=== PATIENT | female | born 1975 | race Caucasian/White ===

== ENCOUNTER 2019-10-17 09:53 | Emergency (ER) | payer BC, SELFPAY ==
[2019-10-17 10:06] VITALS: BP 122/84; PULSE 106; RESP 16; TEMP 36.4; O2SAT 100
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
== END 2019-10-17 10:55 | disposition home or self-care (01) ==
PROVIDERS: Emergency Provider Nurse Practitioner; PCP Family Medicine
DX: R60.0 Localized edema (principal); F41.9 Anxiety disorder, unspecified; F32.9 Major depressive disorder, single episode, unspecified
CPT/HCPCS: 99213; G0463

== ENCOUNTER 2020-06-01 06:51 | Outpatient (NON) | payer BC, SELFPAY ==
[2020-06-01 18:18] LABS: SARS-CoV-2 RNA PCR Negative
== END 2020-06-01 06:52 ==
LOC: ANHCOVIDDT 06:52
PROVIDERS: PCP Family Medicine; Visit Provider Family Medicine
DX: Z20.828 Contact with and (suspected) exposure to other viral communicable diseases (principal)
CPT/HCPCS: 87635; C9803; U0003

== ENCOUNTER 2020-06-21 07:46 | Outpatient (CLI) | payer BC, SELFPAY ==
--- NOTE | ~2020-06-21 | MM_ITS ---
EXAMINATION: MM screening [facility] BI w john HISTORY: Screening mammogram TECHNIQUE: Craniocaudal and mediolateral oblique 3-D tomosynthesis images were obtained and synthetic 2-D images were generated. CAD analysis was submitted and interpreted. COMPARISON: 01/06/2019, 12/23/2017 BREAST PARENCHYMAL COMPOSITION: There are scattered areas of fibroglandular density. FINDINGS: RIGHT BREAST: There is no evidence of suspicious mass, calcification, or architectural distortion to suggest malignancy. There has been no significant interval change. LEFT BREAST: There is a possible mass in the posterior third outer breast best appreciated 7.8 cm fro m the nipple on the craniocaudal view. IMPRESSION: 1. Possible left breast mass. 2. Additional mammographic views and possible breast ultrasound are recommended. BI-RADS Category 0: Incomplete: Needs additional imaging evaluation. Reviewed, dictated and finalized at location A. GENCY MEDICINE SPECIALIST IMPRESSION: 1. Possible left breast mass. 2. Additional mammographic views and possible breast ultrasound are recommended . BI-RADS Category 0: Incomplete: Needs additional imaging evaluation.
== END 2020-06-21 07:47 | disposition home or self-care (01) ==
LOC: ANHIMG 07:48
PROVIDERS: PCP Family Medicine; Visit Provider Family Medicine
DX: Z12.31 Encounter for screening mammogram for malignant neoplasm of breast (principal); R92.8 Other abnormal and inconclusive findings on diagnostic imaging of breast
CPT/HCPCS: 77063; 77067

== ENCOUNTER 2020-06-29 10:30 | Outpatient (CLI) | payer BC, SELFPAY ==
--- NOTE | ~2020-06-29 | MMUS_ITS ---
EXAMINATION: US GUIDED NEEDLE BIOPSY DATE: 06/29/2020 16:59 OIL PUMP STATION OPERATOR CHIEF INDICATION: Shadowing small lesion at 3:00 4 cm from nipple. TECHNIQUE AND FINDINGS: The risks and potential benefits of the procedure were discussed with the patient, and written inform ed consent was obtained. Timeout procedure was performed. After sterile preparation of the breast, 1% lidocaine was utilized for local anesthesia. A 14G spring-loaded biopsy gun needle was advanced to the edge of the region of interest from a later omedial approach utilizing sonographic guidance. A total of 2 tissue core samples were obtained thro ugh the lesion. An Inrad tissue marker clip was then placed at the approximate biopsy site (The lesi on was difficult to locate after the biopsy.) Hemostasis was achieved. A sterile bandage was applied. The patient tolerated procedure well and there was no evidence of immediate complication. The patien t was given verbal instructions prior to departing from the department. A two view mammogram was perf ormed to document tissue marker clip placement; the biopsy marker successfully deployed upon review o f the mammogram, at mid to lower outer breast, approximately 4:00 position. The tissue samples were s ubmitted to surgical pathology for histologic analysis. IMPRESSION: 1. Successful ultrasound guided biopsy of Left 3:00 breast mass with biopsy marker placement. Please refer to pathology report for histologic analysis. Reviewed, dictated and finalized at Location A. Reviewed, dictated and finalized at location A. PUMP STATION OPERATOR CHIEF IMPRESSION: 1. Successful ultrasound guided biopsy of Left 3:00 breast mass with biopsy ma rker placement. Please refer to pathology report for histologic analysis.
== END 2020-06-29 10:31 | disposition home or self-care (01) ==
PROVIDERS: PCP Family Medicine; Visit Provider Family Medicine
DX: R92.8 Other abnormal and inconclusive findings on diagnostic imaging of breast (principal)
CPT/HCPCS: 19083; 88305; A4648

== ENCOUNTER 2020-07-14 07:48 | Outpatient (CLI) | payer BC, SELFPAY ==
--- NOTE | ~2020-07-14 | NM_ITS ---
EXAMINATION: NM hepatobiliary w pharm DATE: 07/14/2020 11:35 INDICATION: Right upper quadrant abdominal pain. COMPARISON: None. TECHNIQUE: 5 mCi Tc-99m mebrofenin (Choletec) was administered intravenously. Scintigraphic images o f the abdomen were obtained for one hour. Then, 1.5 mcg sincalide (Kinevac) IV was administered, and imaging was continued for 30 minutes. FINDINGS: There is normal clearance of radiotracer from the blood pool. There is homogeneous tracer u ptake by the liver. Activity progresses to the bowel and gallbladder. Gallbladder ejection fraction (GBEF) was 89%. Note that most patients with gallbladder dysfunction have GBEF < 35%, which overlaps with the broad normal range of 10-90%. IMPRESSION: 1. Normal hepatobiliary scintigraphy. Reviewed, dictated and finalized at location B. GER MEDICARE
== END 2020-07-14 07:49 | disposition home or self-care (01) ==
PROVIDERS: PCP Family Medicine; Visit Provider Family Medicine
DX: R10.11 Right upper quadrant pain (principal)
CPT/HCPCS: 78227; A9537; J2805

== ENCOUNTER 2020-12-27 14:39 | Emergency (ER) | payer BC, SELFPAY ==
[2020-12-27 14:43] VITALS: BP 140/85; PULSE 106; RESP 16; TEMP 36.7; O2SAT 99
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
[2020-12-27] MEDS: TETANUS,DIPHTHERIA,AC PERTUSSIS ADULT (0.5 ML) BOOSTRIX IM (15:02)
[2020-12-27] MEDS: SILVER SULFADIAZINE 1% CR 50 GM JAR (*BKC) 1 APPLIC TOPICAL (15:03)
== END 2020-12-27 15:22 | disposition home or self-care (01) ==
PROVIDERS: Emergency Provider Nurse Practitioner; PCP Family Medicine
DX: T20.17XA Burn of first degree of neck, initial encounter (principal); X19.XXXA Contact with other heat and hot substances, initial encounter
CPT/HCPCS: 16000; 90471; 90715; 99213; A9270; G0463

== ENCOUNTER 2021-01-16 08:23 | Outpatient (CLI) | payer BC, SELFPAY ==
--- NOTE | ~2021-01-16 | MR_ITS ---
EXAMINATION: MR brain IAC wo/w con EXAM DATE: 01/16/2021 09:45 INDICATION: Bilateral tinnitus. TECHNIQUE: Multi-sequential, multiplanar MR images of the brain, brainstem, internal auditory canals were obtained without contrast. Whole brain sagittal T1, axial diffusion, gradient echo (T2*), T1, T 2, FLAIR sequences obtained. High resolution coronal 3-D FIESTA, coronal T1 FSE, axial T1 FSPGR of t he internal auditory canals. Patient was then injected with 14 cc Multihance contrast intravenously. Postcontrast axial and coronal T1 weighted whole brain, axial and coronal high resolution T1 IAC seq uences obtained. There is no prior study for comparison. FINDINGS: No evidence of mastoid or middle ear opacification. The 7th/8th cranial nerve complexes a re symmetric, normal in course and caliber. No cerebellopontine angle masses. Posterior fossa unrem arkable. An artery which is probably the right anterior inferior cerebellar artery is extending < 50% into the respective internal auditory canal. This finding has been implicated by some in potentially causing compressive 7th/8th cranial nerve symptoms, a vascular loop compressive syndrome, but is often seen i ncidentally in asymptomatic patients. There are no areas of restricted diffusion to suggest acute infarction. There is no acute hemorrhage seen on the T2*, a hemosiderin sensitive sequence. No intraparenchymal brain mass. The ventricles a re normal in size. There are no extra-axial collections. Flow voids are seen in the cerebral arteri es on the T2-weighted sequences consistent with their expected patency. The orbits are unremarkable. Soft tissue is unremarkable. Small right maxillary sinus polyp or retention cyst. IMPRESSION: 1. 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 2. Otherwise unremarkable internal auditory canals, brain. Reviewed, dictated and finalized at location B. IMPRESSION: 1. Right AICA extending partially into internal auditory canal, of uncertain c linical significance. 2. Otherwise unremarkable internal auditory canals, brain.
[2021-01-16 08:57] LABS: Estimated Glomerular Filt Rate > 60
== END 2021-01-16 08:24 | disposition home or self-care (01) ==
PROVIDERS: PCP Family Medicine; Visit Provider Otolaryngology
DX: H93.13 Tinnitus, bilateral (principal)
CPT/HCPCS: 70553; A9577

== ENCOUNTER 2021-09-18 15:59 | Outpatient (CLI) | payer BC, SELFPAY ==
--- NOTE | ~2021-09-18 | MM_ITS ---
EXAMINATION: MM screening [facility] w john HISTORY: Screening TECHNIQUE: Craniocaudal and mediolateral oblique 3-D tomosynthesis images were obtained and synthetic 2-D images were generated. CAD analysis was submitted and interpreted. COMPARISON: Comparison to multiple prior studies sequentially, with oldest reviewed study dated 12/23. BREAST PARENCHYMAL COMPOSITION: The breasts are heterogenously dense, which may obscure small masses FINDINGS: There is no evidence of suspicious mass, calcification, or architectural distortion to sugg est malignancy in either breast. There has been no suspicious interval change. IMPRESSION: 1. No mammographic evidence of malignancy. 2. Recommend routine screening mammography in one year. BI-RADS Category 1: Negative Reviewed, dictated and finalized at location A. LIES PACKER
== END 2021-09-18 16:00 | disposition home or self-care (01) ==
LOC: ANHIMG 16:01
PROVIDERS: PCP Family Medicine; Visit Provider Family Medicine
DX: Z12.31 Encounter for screening mammogram for malignant neoplasm of breast (principal)
CPT/HCPCS: 77063; 77067

== ENCOUNTER 2022-09-20 16:26 | Outpatient (CLI) | payer OTHER, SELFPAY ==
--- NOTE | ~2022-09-20 | MM_ITS ---
EXAMINATION: MM screening [facility] w john HISTORY: Screening mammogram TECHNIQUE: Craniocaudal and mediolateral oblique 3-D tomosynthesis images were obtained and synthetic 2-D images were generated. CAD analysis was submitted and interpreted. COMPARISON: September 18, 2021 bilateral screening mammogram 06/29/2020 left ultrasound guided breast biopsy 06/23/2020 left diagnostic mammogram and left breast ultrasound examination BREAST PARENCHYMAL COMPOSITION: The breasts are heterogeneously dense, which may obscure small masses . FINDINGS: Right breast: There is no evidence of suspicious mass, calcification, or architectural dist ortion to suggest malignancy in the right breast. There has been no suspicious interval change. Left breast: There is a biopsy marker on the left. There is asymmetry with suggestion of architectural distortion in the mid to upper left breast on MLO view at mid depth. Diagnostic left mammogram and left breast ultrasound examination are recommended. IMPRESSION: 1. Asymmetry suggested architectural distortion in the mid to upper left breast at mid depth on MLO v iew 2. Diagnostic left mammogram and left breast ultrasound examination are recommended BI-RADS Category 0: Incomplete: Needs additional imaging evaluation. Reviewed, dictated and finalized at location A. KLAYER HELPER IMPRESSION: 1. Asymmetry suggested architectural distortion in the mid to upper left breast at mid depth on MLO view 2. Diagnostic left mammogram and left breast ultrasound examination are recomme nded BI-RADS Category 0: Incomplete: Needs additional imaging evaluation.
== END 2022-09-20 16:27 | disposition home or self-care (01) ==
PROVIDERS: PCP Family Medicine; Visit Provider Family Medicine
DX: Z12.31 Encounter for screening mammogram for malignant neoplasm of breast (principal); R92.8 Other abnormal and inconclusive findings on diagnostic imaging of breast
CPT/HCPCS: 77063; 77067

== ENCOUNTER 2022-10-12 11:18 | Outpatient (CLI) | payer OTHER, SELFPAY ==
--- NOTE | ~2022-10-12 | MMUS_ITS ---
EXAMINATION: MM diagnostic [facility] LT w john, US breast LT limited HISTORY: Asymmetry and possible architectural distortion of the left breast on screening mammogram TECHNIQUE: Additional 3-D tomosynthesis images of the left breast were performed and synthetic 2-D im ages were generated. CAD analysis was submitted and interpreted. High resolution limited left breast ultrasound was performed. COMPARISON: 09/20/2022, 09/18/2021, 06/23/2020, 06/21/2020 FINDINGS: MAMMOGRAPHIC FINDINGS: There is a return to baseline fibroglandular appearance with spot compression of the left breast in t he area questioned on screening mammogram. ULTRASOUND: There is no evidence of focal abnormal solid or cystic mass in the vicinity of the mammographic findi ng in question. IMPRESSION: 1. No mammographic or sonographic evidence of malignancy. 2. Recommend routine screening mammography in one year. BI-RADS Category 1: Negative Reviewed, dictated and finalized at location A. 'S SWIM COACH IMPRESSION: 1. No mammographic or sonographic evidence of malignancy. 2. Recommend routine screening mammography in one year. BI-RADS Category 1: Negative
== END 2022-10-12 11:19 | disposition home or self-care (01) ==
PROVIDERS: PCP Family Medicine Sports Medicine; Visit Provider Family Medicine
DX: R92.8 Other abnormal and inconclusive findings on diagnostic imaging of breast (principal)
CPT/HCPCS: 76642; 77061; 77065; G0279

== ENCOUNTER 2023-09-23 08:48 | Outpatient (CLI) | payer OTHER, SELFPAY ==
--- NOTE | ~2023-09-23 | MM_ITS ---
EXAMINATION: MM screening [facility] BI w john HISTORY: Screening TECHNIQUE: Craniocaudal and mediolateral oblique 3-D tomosynthesis images were obtained and synthetic 2-D images were generated. CAD analysis was submitted and interpreted. COMPARISON: Comparison to multiple prior studies sequentially, with oldest reviewed study dated 06/05. BREAST PARENCHYMAL COMPOSITION: FINDINGS: There are biopsy changes in the upper outer quadrant of the left breast. There is no eviden ce of suspicious mass, calcification, or architectural distortion to suggest malignancy in either roxanne ast. There has been no suspicious interval change. IMPRESSION: 1. No mammographic evidence of malignancy. 2. Recommend routine screening mammography in one year. BI-RADS Category 2: Benign finding(s). Reviewed, dictated and finalized at location A. RITY PROGRAM MANAGER
== END 2023-09-23 08:49 | disposition home or self-care (01) ==
LOC: ANHIMG 08:54
PROVIDERS: PCP Family Medicine Sports Medicine; Visit Provider Family Medicine Sports Medicine
DX: Z12.31 Encounter for screening mammogram for malignant neoplasm of breast (principal)
CPT/HCPCS: 77063; 77067

== ENCOUNTER 2024-11-30 08:04 | Outpatient (CLI) | payer BC, SELFPAY ==
--- NOTE | ~2024-11-30 | MM_ITS ---
EXAMINATION: MM screening marek BI w john HISTORY: Screening mammogram TECHNIQUE: Craniocaudal and mediolateral oblique 3-D tomosynthesis images were obtained and synthetic 2-D images were generated. CAD analysis was submitted and interpreted. COMPARISON: 09/23/2023, 09/20/2022, 09/18/2021 BREAST PARENCHYMAL COMPOSITION:Dense: The breasts are heterogeneously dense, which may obscure small masses. FINDINGS: No suspicious mass, calcification, or architectural distortion are identified in either roxanne ast to suggest malignancy. There has been no suspicious interval change. IMPRESSION: No mammographic evidence of malignancy. Recommend routine screening mammography in one year. BI-RADS Category 1: Negative Reviewed, dictated and finalized at location .
--- OUTSIDE RECORDS SUMMARY | 2024-11-30 08:13 | XMS_ITS | Encounter Summary ---
Author Organization [facility] Address [facility]ly [facility] [place] [address] Care Team Providers Care [employer] Press Feeder Name Role Phone Ivana Alas MD Primary Care Provider [phone] Encounter Details Date Type Department Care Team (Late st Contact Info) Description 11/21/2020 Prep for Procedure [facility] [place] [address] Keaton Cueva MD [address] [id number] Social History Tobacco Use Types Packs/Day Years Used Date Smoking Tobacco: Never Assessed Comments Unknown Sex and Gender Information Value Date Recorded Sex Assigned at Not on file Legal Sex Female 5:22 PM CDT Gender Identity Not on file Sexual Orientation Not on file documented as of this encounter Plan of Treatment Not on file documented as of this encounter Results * PRE-SURGICAL/PRE-PROCEDURE CORONAVIRUS (COVID 19) (11/22/2020 9:50 AM CDT) CORONAVIRUS SARS COV 2 PCR (RESP) NOT DETECTED NOT DETECTED 11/23/2020 6:46 AM CDT [facility] Comment: A Not Detected (negative) test result for this test means that SARS-CoV-2 RNA was not present in the specimen above the limit of detection. A negative result does not rule out the possibility of COVID-19 and should not be used as the sole basis for treatment or patient management decisions. If COVID-19 is still suspected, based on exposure history together with other clinical findings, re-testing should be considered in consultation with public health authorities. Laboratory test results should always be considered in the context of clinical observations and epidemiological data in making a final diagnosis and patient management decisions. This patient specimen was tested using an FDA EUA pooling method. Negative results from pooled testing should not be treated as definitive. If the patient's clinical signs and symptoms are inconsistent with a negative result or results are necessary for patient management, then the patient should be considered for individual testing. In very rare cases, estimated at about 8 in 1,000 (0.8%) or less patient specimens with low viral loads may not be detected in sample pools due to the decreased sensitivity of pooled testing. Please review the Fact Sheets and FDA authorized labeling available for health care providers and patients using the following websites: https://www.[employer]too.me/home/Covid-19/HCP/rc- mhba-ait8-abjl-sheet.html https://www.[employer]too.me/home/Covid-19/Patients/ ng-kygp-mjj8-fact-sheet.html This test has been authorized by the FDA under an Emergency Use Authorization (EUA) for use by authorized laboratories. Due to the current public health emergency, [employer] [employer] [facility] is receiving a high volume of samples from a wide variety of swabs and media for COVID-19 testing. In order to serve patients during this public health crisis, samples from appropriate clinical sources are being tested. Negative test results derived from specimens received in non-commercially manufactured viral collection and transport media, or in media and sample collection kits not yet authorized by FDA for COVID-19 testing should be cautiously evaluated and the patient potentially subjected to extra precautions such as additional clinical monitoring, including collection of an additional specimen. Methodology: Nucleic Acid Amplification Test (NAAT) includes RT-PCR or TMA Additional information about COVID-19 can be found at the [employer] website: www.[employer].too.me/Covid19. Test performed at [facility] [place] [address] [place] [address] Director: LIA RUBIO DO,MPH FIRST TEST UNKNOWN 11/22/2020 10:20 AM CDT [facility] EMPLOYED IN HEALTHCARE UNKNOWN 11/22/2020 10:20 AM CDT [facility] SYMPTOMATIC DEFINED BY CDC UNKNOWN 11/22/2020 10:20 AM CDT [facility] DATE OF SYMPTOM ONSET NO 11/22/2020 11:03 AM CDT [facility] HOSPITALIZATION STATUS UNKNOWN 11/22/2020 10:20 AM CDT [facility] PATIENT IN ICU UNKNOWN 11/22/2020 10:20 AM CDT [facility] RESIDENT OF [facility] UNKNOWN 11/22/2020 10:20 AM CDT [facility] UNKNOWN 11/22/2020 10:20 AM CDT [facility] PATIENT'S RACE WHITE OR 11/22/2020 10:20 AM CDT [facility] ETHNICITY UNKNOWN 11/22/2020 10:20 AM CDT [facility] SOURCE (QST) NASOPHARYNGEAL SWAB 11/22/2020 10:20 AM CDT [facility] NASOPHARYNGEAL SWAB / Unknown 11/22/2020 9:50 AM CDT us Keaton Cueva MD MICROBIOLOGY - GENE RAL ORDERABLES Final Result [facility] [address] [place] [address], [facility] [id number] [place] [id number], documented in this encounter Visit Diagnoses Diagnosis Nausea- Primary Nausea alone documented in this encounter Additional Health Concerns Infection Onset Date Last Indicated Resolved Time COVID-19 Rule Out 11/22/2020 11/22/2020 11/23/2020 6:46 AM CDT documented as of this encounter Care Teams [employer] Press Feeder Relationship Specialty Start Date End Date Ivana Alas MD [address] [place] [address] PCP - General FAMILY PRACTICE 11/22/20 documented as of this encounter
--- OUTSIDE RECORDS SUMMARY | 2024-11-30 08:13 | XMS_ITS | Encounter Summary ---
Author Organization [facility] Healthcare Address [address] [place] [address] Care Team Providers Care Drywall Taper Name Role Phone Ivana Davis MD Primary Care Provider [phone] Nancy Lerma MD Primary Care Provider Encounter Details Date Type Department Care Team (Late st Contact Info) Description 02/03/2020 Telephone [facility] [address] [place] [address] Mere Khan, RT Social History Tobacco Use Types Packs/Day Years Used Date Smoking Tobacco: Never Comments Unknown Sex and Gender Information Value Date Recorded Sex Assigned at Not on file Legal Sex Female 6:00 AM SPECIAL NEEDS CAREGIVER Gender Identity Female 11/20/2024 5:27 AM CDT Sexual Orientation Not on file 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 Not on file Not on file Not on file documented as of this encounter Plan of Treatment Not on file documented as of this encounter Visit Diagnoses Not on filedocumented in this encounter Additional Health Concerns Infection Onset Date Last Indicated Resolved Time COVID: Suspected 04/10/2021 04/10/2021 04/10/2021 11:33 AM CDT documented as of this encounter Care Teams Drywall Taper Relationship Specialty Start Date End Date Ivana Davis MD [address] [place] [id number] PCP - General Family Medicine 01/25/20 05/03/22 Nancy Lerma MD [facility] [place] [address] PCP - General Family Practice 05/04/22 documented as of this encounter
--- OUTSIDE RECORDS SUMMARY | 2024-11-30 08:13 | XMS_ITS | Clinical Summary ---
Author Organization [facility] Address [address] [place] [address] Care Team Providers Care Cable Tool Operator Name Role Phone Ivana Alas MD Primary Care Provider [phone] Allergies Active Allergy Reactions Criticality Noted Date Comments Metoclopramide Other (see comment) 11/25/2020 Feels like skin is crawling Medications omeprazole 40 MG capsule Take 40 mg by mouth daily. 11/11/19 21 Active ondansetron 8 MG disintegrating tablet ondansetron 8 mg disintegrating tablet DISSOLVE 1 TABLET ON THE TONGUE TWICE DAILY NEEDED Active sertraline 50 MG tablet sertraline 50 mg tablet TAKE 1 TABLET BY MOUTH TWICE DAILY Active buPROPion XL 150 MG 24 hr tablet bupropion HCl XL 150 mg 24 hr tablet, extended release TAKE 1 TABLET BY MOUTH DAILY Active buPROPion XL 300 MG 24 hr tablet bupropion HCl XL 300 mg 24 hr tablet, extended release TAKE 1 TABLET BY MOUTH EVERY DAY. GENERIC EQUIVALENT FOR WELLBUTRIN XL Active amitriptyline 25 MG tablet amitriptyline 25 mg tablet Active Social History Tobacco Use Types Packs/Day Years Used Date Smoking Tobacco: Never Smokeless Tobacco: Never Comments No Sex and Gender Information Value Date Recorded Sex Assigned at Not on file Legal Sex Female 5:22 PM CDT Gender Identity Not on file Sexual Orientation Not on file Last Filed Vital Signs Vital Sign Reading Time Taken Comments Blood Pressure 121/74 11/25/2020 11:00 AM CDT Pulse 92 11/25/2020 11:00 AM CDT Temperature 37.2 C (98.9 F) 11/25/2020 10:41 AM CDT Respiratory Rate 15 11/25/2020 11:00 AM CDT Oxygen Saturation 100% 11/25/2020 11:00 AM CDT Inhaled Oxygen Concentration - - Weight 77.1 kg (170 lb) 11/25/2020 8:49 AM CDT Height 180.3 cm (5' 11 ) 11/25/2020 8:49 AM CDT Body Mass Index 23.71 11/25/2020 8:49 AM CDT Plan of Treatment Health Maintenance Due Date Last Done Comments Colorectal Cancer Screening Colonoscopy (10 Years) 1977 Annual Physical 1980 Hepatitis C 12/16/1995 DTaP, Tdap and Td Vaccines ( 1 - Tdap) 1996 Hepatitis B Vaccines (1 of 3 - 19+ 3-dose series) 1996 Cervical Cancer Screening Pa p with HPV Testing (Age 30 to 64) Every 5 Years 12/16/2007 Mammogram Screening 2017 Cervical Cancer Screening Pa p Smear (Age 30 to 64) Every 3 Years 11/17/2023 11/16/2020 [facility] 11/17/2023 COVID-19 Vaccine (3 - 2023-2 5 season) 2024 10/12/2020, 09/21/2020 Meningococcal B Vaccine Aged Out No l onger eligible based on patient's age to complete this topic Meningococcal Vaccine Aged Out No blanca mckinley eligible based on patient's age to complete this topic Pneumococcal Vaccine: Pediatrics (0 to 5 Years) and At-Risk Patients (6 to 49 Years) Aged Out No longer eligible b ased on patient's age to complete this topic RSV Immunizations Under 20 Months Aged Out No longer eligible b ased on patient's age to complete this topic [facility] Care Teams Cable Tool Operator Relationship Specialty Start Date End Date Ivana Alas MD [address] [place] [address] PCP - General FAMILY PRACTICE 11/22/20
--- OUTSIDE RECORDS SUMMARY | 2024-11-30 08:13 | XMS_ITS | Encounter Summary ---
Author Organization [facility] Address [address] [place] [address] Care Team Providers Care Gold Reclaimer Name Role Phone Akanksha Murray MD Primary Care Provider [phone] Margie Garnica RN Unavailable [phone] Encounter Details Date Type Department Care Team (Late st Contact Info) Description 10/23/2011 [facility] Outpatient Visit [facility] Medical [facility] [address] [place] [address] Goyo Stinson MD [address] [place] [address] Social History Tobacco Use Types Packs/Day Years Used Date Smoking Tobacco: Never Assessed Comments Unknown Sex and Gender Information Value Date Recorded Sex Assigned at Not on file Legal Sex Female 11:24 AM SCRIP CLERK Gender Identity Not on file Sexual Orientation Not on file documented as of this encounter Plan of Treatment Not on file documented as of this encounter Visit Diagnoses Not on filedocumented in this encounter Care Teams Gold Reclaimer Relationship Specialty Start Date End Date Akanksha Murray MD [address] [place] [address] PCP - General 08/17/09 [place] [address] [place] [place] [address] Registered Nurse 09/23/11 documented as of this encounter
--- OUTSIDE RECORDS SUMMARY | 2024-11-30 08:13 | XMS_ITS | Clinical Summary ---
Author Organization [facility] Address [address] [place] [address] Care Team Providers Care Naval Aircrewman Helicopter Name Role Phone Nancy Lerma MD Primary Care Provider Allergies Active Allergy Reactions Criticality Noted Date Comments Metoclopramide Other (See comments) Low 11/25/2020 Feels like skin is crawling Medications buPROPion XL (WELLBUTRIN XL) 150 mg 24 hr tablet TAKE 1 TABLET BY MOUTH EVERY DAY GENERIC EQUIVALENT FOR WELLBUTRIN XL 1 Active buPROPion XL (WELLBUTRIN XL) 300 mg 24 hr tablet TAKE 1 TABLET BY MOUTH EVERY DAY. GENERIC EQUIVALENT FOR WELLBUTRIN XL [address] (CYMBALTA) 30 mg capsule 1 capsule (30 mg total) 2 Active eletriptan (RELPAX) 40 mg tabletIndicatio ns:Migraine Take 1 tablet (40 mg total) by mouth once as needed for migraine May repeat once after 2 hours.. Max 2 tabs in 24 hours 18 tablet 4 4 01/06/20 25 Active cyclobenzaprine (FLEXERIL) 10 mg tablet Take 1 tablet by mouth daily. 30 tablet 1 5 Active triamcinolone (KENALOG) 0.1 % ointmentIndicat ions:Dermatitis Apply topically 2 (two) times a day 30 g 5 Active cephalexin (KEFLEX) 500 mg capsuleIndicati ons:Dermatitis Take 1 capsule (500 mg total) by mouth 2 (two) times a day for 7 days 14 capsule 5 11/28/19 25 Active Problems Problem Noted Date Diagnosed Date Encounter for screening colonoscopy 05/28/2023 EMELIA (generalized anxiety disorder) 05/04/2022 Assessment & Plan (05/10/2023 11:34 AM CDT): Chronic. Stable on current regimen. Continue. TMJ (temporomandibular joint syndrome) Assessment & Plan (06/08/2024 9:52 AM DENTAL HYGIENIST MOBILE COORDINATOR): Patient part of [facility] Bridge Program for med refills. Patient's PCP (Dr. Lerma) has disengaged with [facility]. New patient appointment with Dr. aPrks is scheduled for 11/18/2024. Explained to patient how the Bridge Program works. Advised that we will continue current medication refills, previously prescribed by Dr. Lerma until new appointment, as applicable. If Controlled Substance, we will only prescribe 30 days at a time. To get a refill of controlled medicine, you must have been seen in [facility] in the last 3 months by video visit. It is Very Important that you keep the new patient appointment. If you cancel the new patient appointment, you will no longer be eligible for refills through the Bridge Program. Today's refills: Cyclobenzaprine Assessment & Plan (05/10/2023 11:35 AM CDT): Chronic. Uses engraver apprentice decorative and rare use of muscle relaxer Skin tags, multiple acquired 03/06/2022 Insomnia 03/06/2022 Assessment & Plan (05/10/2023 11:36 AM CDT): Chronic. Discussed sleep hygiene. Discussed meditation/mindfulness prior to bed. If struggles we could always do a trial of trazodone with caution or potentially doxepin. We would have to use caution given her other mood medications. If absolutely needed we could do very sparing use of a sedative hypnotic like Ambien or Lunesta Migraine 03/06/2022 Resolved Problems Problem Noted Date Diagnosed Date Resolved Date Gastroesophageal reflux disease 03/06/2022 05/04/2022 Reflux esophagitis 03/06/2022 Edematous skin 03/06/2022 05/04/2022 Nausea 03/06/2022 05/04/2022 Shortness of breath at rest 03/06/2022 05/04/2022 Vomiting 03/06/2022 05/04/2022 Wax in ear 03/06/2022 05/04/2022 Tinnitus 05/05/2021 05/04/2022 Eustachian tube disorder 06/23/2015 Anemia 09/25/2011 05/04/2022 Anxiety 09/25/2011 05/10/2023 Obesity 09/25/2011 05/04/2022 Encounters Date Type Department Care Team Description 11/20/2024 7:00 AM CDT Telemedicine [facility] Virtual Care [address] [place] [phone] Oneida Lopez, MANAGER REGISTRATION Dermatitis (Primary Dx); Insect bite of left lower leg, initial encounter 11/20/2024 Patient Self-Triage [facility] [address] [place] [address] Mychart, Generic Provider from Last 3 Months Immunizations Immunization Administration Dates Next Due Influenza, Quadrivalent, Mera l Culture-based MDCK, Preservative Free, Antibiotic Free, Intramuscular 04/26/2023 Influenza, Quadrivalent, Spl it, Intramuscular 04/23/2019 Influenza, Quadrivalent, Spl it, Preservative Free, Intramuscular 05/04/2022,04/19/2020,04/23/2019 Influenza, Trivalent, Preser vative Free, Intramuscular 04/16/2016,08/21/2012 Pfizer SARS-CoV-2 Monovalent Vaccination (12+ Yrs) PURPLE 02/20/2022,03/23/2021,09/21/2020 Pfizer Sars-Cov-2 Bivalent V accination (12+ YRS) 04/25/2022 Tdap 12/27/2020,04/01/2013 Surgical History Surgery Date Site/Laterality Comments [place] CORRJ HLX VLGS BNCTY SESMDC DSTL METAR OSTEOT 08/05/2003 - 08/04/2004 Left Bunion Correction With Metatarsal Osteotomy - (Added by TW Conv) SECTION x 2 WISDOM TOOTH EXTRACTION COLONOSCOPY 07/23/2023 Medical History Medical History Date Comments Anxiety disorder Anxiety - (Adde d by Conv) Migraine TMJ (dislocation of temporomandibular joint) Binge eating disorder Family History Medical History Relation Name Comments Anxiety disorder Brother Nitin Depression Father Lasha Ag Diabetes Father Lasha Ag Family histor y of diabetes mellitus - (Added by Conv) Heart disease Father Lasha Ag Family histo ry of cardiac disorder - (Added by TW Conv) Hypertension Father Lasha Ag Uterine cancer Maternal Grandmother Anxiety disorder Mother Jihan Ag Depression Sister Mariah Breast cancer Neg Hx Colon cancer Neg Hx Relation Name Status Comments Brother Nitin Father Lasha Ag Maternal Grandmother Mother Jihan Ag Sister Mariah Social History Tobacco Use Types Packs/Day Years Used Date Smoking Tobacco: Never Smokeless Tobacco: Never Tobacco Cessation:Counseling Given: Not Answered AUDIT-C Answer Date Recorded Q1: How often do you have a drink containing alc ohol? Monthly or less 07/22/2023 Q2: How many drinks containi ng alcohol do you have on a typical day when you are drinking? 1 or 2 07/22/2023 Q3: How often do you have si x or more drinks on one occasion? Never 07/22/2023 PHQ-2 Answer Date Recorded PHQ-2 Total Score (If total score is 3 or more points, staff should administer the PHQ-9) 0 05/10/2023 Personal Safety Answer Date Recorded Have you ever been in or are you currently in a harmful physical or emotional relationship or is someone making you feel afraid or unsafe? 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 on file Not on file Not on file Obstetrics History Last Filed Vital Signs Vital Sign Reading Time Taken Comments Blood Pressure 119/77 07/23/2023 11:53 AM DENTAL HYGIENIST MOBILE COORDINATOR Pulse 88 07/23/2023 11:53 AM DENTAL HYGIENIST MOBILE COORDINATOR Temperature 36.8 C (98.2 F) 07/23/2023 11:53 AM DENTAL HYGIENIST MOBILE COORDINATOR Respiratory Rate 20 07/23/2023 11:53 AM DENTAL HYGIENIST MOBILE COORDINATOR Oxygen Saturation 100% 07/23/2023 11:53 AM DENTAL HYGIENIST MOBILE COORDINATOR Inhaled Oxygen Concentration - - Weight 72.6 kg (160 lb) 07/23/2023 10:08 AM DENTAL HYGIENIST MOBILE COORDINATOR Height 182.9 cm (6') 07/23/2023 10:08 AM DENTAL HYGIENIST MOBILE COORDINATOR Body Mass Index 21.7 07/23/2023 10:08 AM DENTAL HYGIENIST MOBILE COORDINATOR Plan of Treatment Health Maintenance Due Date Last Done Comments Hepatitis C Screening 1977 Hepatitis B Screening 12/16/1995 Covid-19 Vaccine ( season) 2024 04/26/2023, 07/30/2022, 04/25/2022, Additional history exists Depression Screening 05/10/2024 05/10/2023, 05/04/20 Regular Well Visit/Exam 18-64 05/10/2024 05/10/2023, 05/04/2022 Breast Cancer Screening-Mammogram 09/23/2024 09/23/2023, 10/12/2022, 09/20/2022, Additional history exists Influenza Vaccine (Season Ended) 2025 04/26/2023, 05/04/2022, 04/19/2020, Additional history exists Cervical Cancer Screening 11/16/2025 11/16/2020 DTaP/Tdap/Td Vaccine (3 - Td or Tdap) 12/27/2030 12/27/2020, 04/01/2013 Colon Cancer Screening-Colonoscopy 07/23/2033 07/23/2023 HPV Vaccines Aged Out No longer eligi ble based on patient's age to complete this topic Pneumococcal vaccine <65 Aged Out No longer eligible based on patient's age to complete this topic Procedures Procedure Name Priority Date/Time Associated Diagnosis Comments MAMMOGRAPHY Routine 09/23/2023 COLONOSCOPY 07/23/2023 10:32 AM DENTAL HYGIENIST MOBILE COORDINATOR PAP SMEAR WITH HPV Routine 11/16/2020 from Last 3 Months or Most Recently Relevant to Health Maintenance Results * MAMMOGRAPHY (09/23/2023) Mammography Normal us Historical Provider HEALTH MAINTENANCE Final Result * COLONOSCOPY (07/23/2023 10:32 AM DENTAL HYGIENIST MOBILE COORDINATOR) Anatomical Region Laterality Modality Other Narrative Procedure Note Goyo Dos Santos MD - 07/23/2023 10:32 AM CST [facility] Patient Name: Rosie Ag Procedure Date: 07/23/2023 10:32AM Date of : 1975 Admit Type: Outpatient Age: 47 Gender: Female Attending MD: Goyo Dos Santos M.D. Room: [facility] ENDOSCOPY ROOM 2 Note Status: Finalized Patient Profile: Refer to note in patient chart for documentation of history and physical. Procedure: Colonoscopy Indications: Screening for colorectal malignant neoplasm, Thisis the patient's first colonoscopy Referring MD: Nancy Lerma M.D. Providers: Goyo Dos Santos M.D. Impression: - Hemorrhoids found on perianal exam. - The entire examined colon is normal. - No specimens collected. Recommendation: - Discharge patient to home. - Resume previous diet. - Continue present medications. - Repeat colonoscopy in 10 years for screening purposes. - Return to primary care physician as previously scheduled. Medicines: Propofol per Anesthesia Complications: No immediate complications. Estimated Blood Loss: Estimated blood loss: none. Procedure: Pre-Anesthesia Assessment: - This assessment was completed [Time ofAssessment] prior to the administration of sedation. The benefits, risks and alternatives of theprocedure and sedation were discussed and informed consentwas obtained. All questions were answered. Please referto the signed informed consent document in the medical record. The bowel preparation used was Miralax via split dose instruction. The bowel preparation usedwas bisacodyl tablets via split dose instruction. The scope was passed under direct vision. TheColonoscope [id number] was introduced through the anus and advanced to the the cecum, identified by appendiceal orifice and ileocecal valve. The colonoscopy was performed without difficulty. The patient tolerated the procedure well. The qualityof the bowel preparation was excellent. The ileocecal valve, appendiceal orifice, and rectum were photographed. Findings: Hemorrhoids were found on perianal exam. The colon (entire examined portion) appeared normal. Electronically signed by Goyo Dos Santos M.D. Goyo Dos Santos M.D. 07/23/2023 11:25:23 AM Number of Addenda: 0 Note Initiated On: 07/23/2023 10:32 AM Procedure Code(s): --- Professional --- G0121, Colorectal cancer screening; colonoscopy on individual not meeting criteria for high risk --- Technical --- G0121, Colorectal cancer screening; colonoscopy on individual not meeting criteria for high risk Diagnosis Code(s): --- Professional --- K64.9, Unspecified hemorrhoids Z12.11, Encounter for screening for malignant neoplasm of colon --- Technical --- K64.9, Unspecified hemorrhoids Z12.11, Encounter for screening for malignant neoplasm of colon CPT copyright 2020 [employer]. All rights reserved. The codes documented in this report are preliminary and upon specialties operator reviewmay be revised to meet current compliance requirements. Recognized by the [employer] for promoting quality in endoscopy Goyo Dos Santos MD ENDOSCOPY PROCEDURES Final Re sult * HM PAP SMEAR WITH HPV (11/16/2020) Scribed Pap Smear w/HPV Normal Comment:care everywhere for result 11/16/2020 Historical Provider HEALTH MAINTENANCE Final Result from Last 3 Months or Most Recently Relevant to Health Maintenance Insurance [facility] [facility] [place] Directives For more information, please contact: [phone] * Full Code (Latest Code Status on File) Date Activated Date Inactivated Comments 07/23/2023 10:02 AM 07/23/2023 4:21 PM * Full Code Date Activated Date Inactivated Comments 07/23/2023 10:02 AM 07/23/2023 10:02 AM Care Teams Naval Aircrewman Helicopter Relationship Specialty Start Date End Date Nancy Lerma MD PCP - General Family Practice 05/04/22
--- OUTSIDE RECORDS SUMMARY | 2024-11-30 08:13 | XMS_ITS | Encounter Summary ---
Author Organization [facility] Address [address] [place] [address] Phone Care Team Providers Care Residential Program Manager Name Role Phone Ivana Davis MD Primary Care Provider [phone] Nancy Lerma MD Primary Care Provider Encounter Details Date Type Department Care Team (Latest Contact Info) Description 04/13/2022 Orders Only [facility] Scanning, Provider Social History Tobacco Use Types Packs/Day Years Used Date Smoking Tobacco: Never Smokeless Tobacco: Never AUDIT-C Answer Date Recorded Q1: How often do you have a drink containing alc ohol? Never 05/05/2021 Average Number of Drinks Not on file 021 Q3: How often do you have si x or more drinks on one occasion? 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 file Not on file Not on file documented as of this encounter Plan of Treatment Not on file documented as of this encounter Procedures Procedure Name Priority Date/Time Associated Diagnosis Comments SCAN - RADIOLOGY/IMAGING 04/13/2022 documented in this encounter Results * SCAN - RADIOLOGY/IMAGING (04/13/2022) Anatomical Region Laterality Modality Other us Provider Scanning Final Result documented in this encounter Visit Diagnoses Not on filedocumented in this encounter Care Teams Residential Program Manager Relationship Specialty Start Date End Date Ivana Davis MD [address] [place] [address] [place] [address] PCP - General Family Medicine 01/25/20 05/03/22 Nancy Lerma MD [address] [place] [address] [place] [address] PCP - General Family Practice 05/04/22 documented as of this encounter
--- OUTSIDE RECORDS SUMMARY | 2024-11-30 08:13 | XMS_ITS | Referral Summary ---
Author Organization [facility] Address [address] [place] [address] Care Team Providers Care Mixer And Scaler Name Role Phone Nancy Lerma MD Primary Care Provider Encounters Date Type Department Care Team Description 11/20/2024 7:00 AM CDT Telemedicine [facility] Virtual Care [address] [place] [phone] Oneida Lopez, KIRK Dermatitis (Primary Dx); Insect bite of left lower leg, initial encounter 11/20/2024 Patient Self-Triage [facility] [address] [place] [address] Mychart, Generic Provider from Last 3 Months Allergies Active Allergy Reactions Criticality Noted Date [...] syndrome) Assessment & Plan (06/08/2024 9:52 AM MANAGER FAMILY): Patient part of [facility] Bridge Program for med refills. Patient's PCP (Dr. Lerma) has disengaged with [facility]. New patient appointment with Dr. Parks is scheduled for 11/18/2024. Explained to patient how the Bridge Program works. Advised that we will continue current medication refills, previously prescribed by Dr. Lerma until new appointment, as applicable. If Controlled Substance, we will only prescribe 30 days at a time. To get a refill of controlled medicine, you must have been seen in [facility] in the last 3 months by video visit. It is Very Important that you keep the new patient appointment. If you cancel the new patient appointment, you will no longer be eligible for refills through the Bridge Program. Today's refills: Cyclobenzaprine Assessment & Plan (05/10/2023 11:35 AM CDT): Chronic. Uses night worker and rare use of muscle relaxer Skin [...] 05/04/2022 Anxiety 09/25/2011 05/10/2023 Obesity 09/25/2011 05/04/2022 Immunizations Immunization Administration Dates Next Due Influenza, Quadrivalent, Mera l Culture-based MDCK, Preservative Free, Antibiotic Free, Intramuscular 04/26/2023 Influenza, Quadrivalent, Spl it, Intramuscular 04/23/2019 Influenza, Quadrivalent, Spl it, Preservative Free, Intramuscular 05/04/2022,04/19/2020,04/23/2019 Influenza, Trivalent, Preser vative Free, Intramuscular 04/16/2016,08/21/2012 Pfizer SARS-CoV-2 Monovalent Vaccination (12+ Yrs) PURPLE 02/20/2022,03/23/2021,09/21/2020 Pfizer Sars-Cov-2 Bivalent V accination (12+ YRS) 04/25/2022 Tdap 12/27/2020,04/01/2013 Social History Tobacco Use Types Packs/Day Years [...] on file Legal Sex Female 6:00 AM MANAGER FAMILY Gender Identity Female 11/20/2024 5:27 AM CDT Sexual Orientation Not on file 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 Not on file Not on file Not on file Last Filed Vital Signs Vital Sign Reading Time Taken Comments Blood Pressure 119/77 07/23/2023 11:53 AM MANAGER FAMILY Pulse 88 07/23/2023 11:53 AM MANAGER FAMILY Temperature 36.8 C (98.2 F) 07/23/2023 11:53 AM MANAGER FAMILY Respiratory Rate 20 07/23/2023 11:53 AM MANAGER FAMILY Oxygen Saturation 100% 07/23/2023 11:53 AM MANAGER FAMILY Inhaled Oxygen Concentration - - Weight 72.6 kg (160 lb) 07/23/2023 10:08 AM MANAGER FAMILY Height 182.9 cm (6') 07/23/2023 10:08 AM MANAGER FAMILY Body Mass Index 21.7 07/23/2023 10:08 AM MANAGER FAMILY Plan of Treatment Not on file Procedures Procedure Name Priority Date/Time Associated Diagnosis Comments MAMMOGRAPHY Routine 09/23/2023 COLONOSCOPY 07/23/2023 10:32 AM MANAGER FAMILY PAP SMEAR WITH HPV Routine 11/16/2020 from Last 3 Months or Most Recently Relevant to Health Maintenance Results * MAMMOGRAPHY (09/23/2023) Mammography Normal us Historical Provider HEALTH MAINTENANCE Final Result * COLONOSCOPY (07/23/2023 10:32 AM MANAGER FAMILY) Anatomical Region Laterality Modality Other Narrative Procedure Note Goyo Dos Santos MD - 07/23/2023 10:32 AM CST [facility] Patient Name: Rosie Ag Procedure Date: 07/23/2023 10:32AM Date of : 1975 Admit Type: Outpatient Age: 47 Gender: Female Attending MD: Goyo Dos Santos M.D. Room: [facility] ENDOSCOPY ROOM 2 Note Status: Finalized [...] scope was passed under direct vision. TheColonoscope [id number] was introduced through the anus and advanced [...] malignant neoplasm of colon CPT copyright 2020 [employer]. All rights reserved. The codes documented in this report are preliminary and upon brake linings coater reviewmay be revised to meet current compliance requirements. Recognized by the [employer] for promoting quality in endoscopy Goyo Dos Santos MD ENDOSCOPY PROCEDURES Final Re sult * HM PAP SMEAR WITH HPV (11/16/2020) Scribed Pap Smear w/HPV Normal Comment:care everywhere for result 11/16/2020 Historical Provider HEALTH MAINTENANCE Final Result from Last 3 Months or Most Recently Relevant to Health Maintenance Insurance [facility] [employer] ACCESS CHOICE Advance Directives For more information, please contact: [phone] * Full Code (Latest Code Status on File) Date Activated Date Inactivated Comments 07/23/2023 10:02 AM 07/23/2023 4:21 PM * Full Code Date Activated Date Inactivated Comments 07/23/2023 10:02 AM 07/23/2023 10:02 AM Care Teams Mixer And Scaler Relationship Specialty Start Date End Date Nancy Lerma MD PCP - General Family Practice 05/04/22
--- OUTSIDE RECORDS SUMMARY | 2024-11-30 08:13 | XMS_ITS | Clinical Summary ---
Author Organization [facility] [employer] Address [address] [place] [address] Care Team Providers Care Fax Machine Repairer Name Role Phone Akanksha Murray MD Primary Care Provider [phone] Margie Garnica RN Unavailable [phone] Source Comments [facility],non-owned Affiliates and Associated Physician Practices is amultiple site organization consisting of ambulatory clinics and hospital sitesin [place]. This disclosure is being madepursuant to the Care Everywhere program and may not contain all information available regarding this patient. Last updated 18.[facility] [employer] Allergies No known active allergies Medications * Be aware that medications may not be up to date on this document. Alwaysverify current medications with the patient. Other 1 Tab 2 times daily. HMR-MVI Active Norgestim-Eth Estrad Triphasic (ORTHO TRI-CYCLEN LO PO) Take 1 Tab by mouth once daily. Active sertraline (ZOLOFT) 100 MG tablet Take 100 mg by mouth once daily. Active ursodiol (ACTIGALL) 300 MG capsule Take 300 mg by mouth 2 times daily. Active acetaminophen (TYLENOL) 500 MG tablet Take 500 mg by mouth every 4 hours as needed. Maximum allowable Acetaminophen amount = 4 Grams (4000 mg) / 24 hours. Active Aspirin-Acetam inophen-Caffei ne (EXCEDRIN MIGRAINE PO) Take 1 Tab by mouth 2 times daily as needed. Active Active Problems Problem Noted Date Diagnosed Date Obesity 09/25/2011 Anxiety 09/25/2011 Anemia 09/25/2011 Estimated Date of Delivery Comme nts Yes 12/30/2009 Based on Last Pr nstrual Period Immunizations Immunization Administration Dates Next Due INFLUENZA VACCINE, QUADR. (F LUZONE; FLULAVAL; FLUARIX; AFLURIA QUADRIVALENT; 6MO+), 0.5 ML (IIV4) 04/19/2020 Family History Medical History Relation Name Comments Other - Cardiac Father Asthma Neg Hx Autoimmune Disease Neg Hx Bipolar Disorder Neg Hx Cancer - Breast Neg Hx Cancer - Colon Neg Hx Cancer - Other Neg Hx Cancer - Ovarian Neg Hx Cancer - Pancreatic Neg Hx Cancer - Prostate Neg Hx Depression Neg Hx Eczema Neg Hx Hypertension Neg Hx Migraine Neg Hx Osteoporosis Neg Hx Seizures Neg Hx Sudd. <30 Neg Hx Thyroid Disease Neg Hx Ulcerative Colitis Neg Hx Relation Name Status Comments Father Alive Mother Social History Tobacco Use Types Packs/Day Years Used Date Smoking Tobacco: Never Smokeless Tobacco: Never Tobacco Cessation:Counseling Given: No Alcohol Use Standard Drinks/Week Comments No 0 (1 standard drink = 0.6 oz pur e alcohol) Estimated Date of Delivery Comme nts Yes 12/30/2009 Based on Last Pr nstrual Period Sex and Gender Information Value Date Recorded Sex Assigned at Not on file Legal Sex Female 11:24 AM WASHCOAT WIPER Gender Identity Not on file Sexual Orientation Not on file Last Filed Vital Signs Vital Sign Reading Time Taken Comments Blood Pressure 114/68 06/28/2019 4:06 PM WASHCOAT WIPER Pulse 93 06/28/2019 4:06 PM WASHCOAT WIPER Temperature 37.1 C (98.8 F) 06/28/2019 4:06 PM WASHCOAT WIPER Respiratory Rate 16 06/28/2019 4:06 PM WASHCOAT WIPER Oxygen Saturation 98% 06/28/2019 4:06 PM WASHCOAT WIPER Inhaled Oxygen Concentration - - Weight 68 kg (150 lb) 06/28/2019 4:06 PM WASHCOAT WIPER Height 180.3 cm (5' 11 ) 06/28/2019 4:06 PM WASHCOAT WIPER Body Mass Index 20.92 06/28/2019 4:06 PM WASHCOAT WIPER Plan of Treatment Health Maintenance Due Date Last Done Comments COLOGUARD (AGES 45-75) - COL ON CA SCREENING 1975 COLON MONITORING 1975 COLONOSCOPY - COLON CA SCREENING 1977 CT COLONOGRAPHY - COLON CA SCREENING 1975 Colorectal Cancer Screening 1975 FIT - COLON CA SCREENING 1975 FLEX SIG - COLON CA SCREENING 1975 LIPID TESTING 1975 MAMMOGRAM 1975 HIV SCREENING 1992 HEPATITIS C SCREENING 12/11/1995 DTAP/TDAP/TD VACCINES (1 - Tdap) 1996 HEPATITIS B VACCINE (1 of 3 - 19+ 3-dose series) 1996 COVID-19 VACCINE ( - 2023-2 5 season) 2024 DEPRESSION SCREENING 08/05/2024 INFLUENZA VACCINE (Season Ended) 2025 04/19/20 20 ZOSTER VACCINE (1 of 2) 12/16/2027 Respiratory Syncytial Virus (RSV) Vaccine Pt: or over 60 yrs (1 - 1-dose 75+ series) 2052 HIB VACCINE Aged Out No longer eligi ble based on patient's age to complete this topic HPV VACCINE Aged Out No longer eligi ble based on patient's age to complete this topic MENINGOCOCCAL (Group B) VACC INE SHARED DECISION-MAKING Aged Out No longer eligibl e based on patient's age to complete this topic MENINGOCOCCAL GROUPS A/C/Y/W VACCINE Aged Out No longer eligible b ased on patient's age to complete this topic PNEUMOCOCCAL VACCINE Aged Out No long er eligible based on patient's age to complete this topic Insurance ANTHEM ANTHEM Care Teams Fax Machine Repairer Relationship Specialty Start Date End Date Akanksha Murray MD [address] [place] [phone] PCP - General 08/17/09 [place] [phone] [place] [address] Registered Nurse 09/23/11
== END 2024-11-30 08:05 | disposition home or self-care (01) ==
LOC: ANHIMG 08:08
PROVIDERS: PCP Nurse Practitioner Family; Visit Provider Nurse Practitioner Family
DX: Z12.31 Encounter for screening mammogram for malignant neoplasm of breast (principal)
CPT/HCPCS: 77063; 77067